=== PATIENT | female | born 1965 | race Caucasian/White ===

== ENCOUNTER 2021-09-10 00:20 | Inpatient (IN) ==
[2021-09-10] MEDS ORDERED: SODIUM BICARB 8.4% INJ 50 MEQ/50 ML SYR IV ONE (00:45)
[2021-09-10 00:49] LABS: Hematocrit (blood only) 47.9 % (37-47); Mean Corpuscular Hgb Conc 33.4 g/dL (32-36); Mean Corpuscular Volume 95.8 fL (80-100); Mean Platelet Volume 11.5 fL (7.4-10.4); Nucleated RBC # (auto) 0.03 K/uL (0-0); Nucleated RBC % (auto) 0.2 %; Platelet Count 201 K/uL (130-400); RDW Coefficient of Variation 12.5 % (11.5-14.5); RDW Standard Deviation 44.1 fL (36.4-46.3); White Blood Count 13.11 K/uL (4.8-10.8)
[2021-09-10 01:01] LABS: INR 1.1 (0.9-1.1); Partial Thromboplastin Ratio 1.2; Partial Thromboplastin Time 30.9 Seconds (21.0-31.0); Prothrombin Time 10.8 Seconds (9.0-12.0)
[2021-09-10] MEDS ORDERED: STAT IV Infusion **Titration per Protocol STA (01:12)
[2021-09-10] MEDS ORDERED: AMIODARONE 150MG / 100ML D5W IV ONE (01:12)
[2021-09-10] MEDS ORDERED: AMIODARONE / D5W 150 MG/100 ML BAG IV STA (01:12)
[2021-09-10] MEDS ORDERED: 0.2 MICRON FILTER SET 1 EA IV ONE (01:12)
[2021-09-10] MEDS ORDERED: AMIODARONE IV BOLUS & DRIP IV STA (01:12)
[2021-09-10 01:16] LABS: Albumin Globulin Ratio 0.9 (0.9-2); Albumin Level 3.4 gm/dl (3.4-5.0); Bilirubin,Total 0.3 mg/dl (0.2-1); Calcium 7.9 mg/dl (8.5-10.1); Est GFR (Non-African American) 52.6 ml/min; Globulin 3.9 gm/dl (2.5-4.0); Total Protein 7.3 gm/dl (6.4-8.2); Troponin I 0.679 ng/ml (0-0.045)
[2021-09-10 01:18] LABS: Appearance Urine Cloudy (Clear); Bacteria Urine Automated 3+ (Negative); Bilirubin Urine Negative (Negative); Blood Urine 2+ (Negative); Color Urine Yellow; Epithelial Cell Urine Auto >30 /lpf (0-5); Glucose Urine UA 2+ (Negative); Ketones Urine Negative (Negative); Leukocyte Esterase Urine Negative (Negative); Nitrite Urine Positive (Negative); Protein Urine 3+ (Negative); Specific Gravity Urine 1.011 (1.000-1.030); Urobilinogen Urine Negative (Negative); WBC Urine Automated >30 /hpf (0-5); pH Urine 6.5 (4.5-7.5)
[2021-09-10] MEDS ORDERED: AMIODARONE / D5W 360 MG/200 ML BAG IV ONE (01:22)
[2021-09-10 01:39] LABS: Amphetamines+Metham, Urine Neg (Neg); Barbiturates, Urine Neg (Neg); Benzodiazepine, Urine Neg (Neg); Cocaine, Urine Neg (Neg); MDMA (Ecstacy), Urine Neg (Neg); Methadone, Urine Neg (Neg); Opiate, Urine Neg (Neg); Phencyclidine, Urine Neg (Neg)
--- NOTE | 2021-09-10 02:08 | Emergency Department Note ---
Impression & Plan Cardiac arrest Admit to the ICU ED Provider Note NAME: ZACH CASTAÑEDA AGE: 56 SEX: F ARRIVES VIA: Ambulance INFORMANT: EMS; family ED PROVIDER(S): Kandice Swan DO CHIEF COMPLAINT: Cardiac arrest PLAN: Disposition: Admit to the ICU Condition: Critical MEDICAL DECISION MAKING: This is a 56-year-old female patient who suffered a cardiac arrest at home that was witnessed by her significant other. CPR was started immediately. BLS arrived on scene and an AED was applied. 2 shocks were administered. ALS arrived on scene and traffic monitor specialist was placed and the patient was in vent ricular fibrillation. 2 additional shocks were given and the patient was given epinephrine. She was intubated. She had return of spontaneous circulation after approximately 40-minute downtime. The patient had no meaningful purposeful movement upon return of pulses but she did seem to be overbreathing the ventilator. Patient has CT scan of the brain which was unremarkable. Tube placement was confirmed by chest x-ray. ABG confirmed significant metabolic acidosis. I discussed the case at length with the staff from the ICU as well as the [facility] hospitalist. I also had multiple conversations with the patient's family. Triage Nursing notes reviewed and agree with them. Additional history obtained from EMS and the patient's significant other. Differential diagnosis: Cardiac dysrhythmia, STEMI, electrolyte abnormality ER treatment provided: 2 Amps sodium bicarbonate IV IV amiodarone-150 mg IV Ativan-2 mg IV Keppra load-1000 mg Diagnostics interpreted by me: ECG: Normal sinus rhythm at a rate of 89 with frequent PVCs and a bigeminy pattern. There is a prolonged QT with a QTC of 528 ms. There is no [address] segment elevation or signs of specific ischemia Cardiac Monitoring: Normal sinus rhythm at a rate of 86 Laboratory studies: See below Imaging studies:as per stat rad CT Head: Images are degraded by significant motion artifact. No grossly evident acute abnormality Consultants: Interventional cardiology-Dr. Galindo HPI: 56/F arrives for evaluation of ROSC status post cardiac arrest. According to the patient's significant other, she had been eating applesauce and collapsed onto the floor afterwards and appeared to be having a seizure but then was noted to be pulseless and not breathing. 911 was called and the significant other started CPR immediately. ROS: I cannot complete a review of systems with the patient and she remained unresponsive. PAST MEDICAL HISTORY:Family states that the patient is diabetic and does smoke cigarettes. PAST SURGICAL HISTORY:See Below FAMILY HISTORY:See Below SOCIAL HISTORY:See Below HOME MEDICATIONS:See list ALLERGIES:None VITALS:See Below PHYSICAL EXAMINATION: HEENT: Head - normocephalic and atraumatic. Pupils are 3 mm and nonreactive. Nose -dry nasal mucosa without discharge. Mouth -endotracheal tube in place Neck: No nuchal rigidity; no cervical lymphadenopathy Heart: Regular rate and rhythm. There is a normal S1 and S2 with no murmurs, clicks, or gallops appreciated. Lungs: Clear to auscultation bilaterally with no wheezes, rales, or rhonchi. Abdomen: Soft, completely nontender, nondistended, with good bowel sounds. There are no palpable pulsatile masses or hepatosplenomegaly. There is no guarding, rigidity, or rebound noted. Extremities: No evidence of cyanosis, clubbing, or edema. There are easily palpable peripheral pulses. Skin: warm and dry with good turgor and no rashes. ED COURSE: Prior to the patient's arrival, I spoke with EMS providers on the phone to provide medical command. They were able to obtain return of spontaneous circulation on this patient. The patient was evaluated emergently in room B1. Report was taken from EMS at the bedside. Upon arrival to the emergency department, a complete physical exam was performed. An order was placed for continuous cardiac monitoring. The patient was in a normal sinus rhythm at a rate of 89. A twelve-lead EKG was obtained. Laboratory studies were drawn as above. Chest x-ray was performed and tube placement was confirmed. An ABG was obtained and the patient was found to be significantly acidotic. The patient was given 2 A of IV sodium bicarbonate. Patient's family arrived and I reviewed the patient's wishes for CODE STATUS. They felt she would want everything done. I discussed the case with staff from the ICU. We discussed the possibility of cooling this patient I then discussed the case with Dr. Galindo from interventional cardiology. The patient began to have some multifocal PVCs and actually went into bigeminy. At that point she was bolused with IV amiodarone. Patient was also noted to have some seizure activity and was given 2 mg of IV Ativan and loaded with IV Keppra. I have personally spent greater than 70 minutes of critical care time in the direct management of this patient. This includes bedside care, interpretation of diagnostic studies, and testing, discussion with consultants, patient, and family members, and other required patient management activities. This 70 minutes is in excess of all separately billable procedures. Kandice Swan DO Past Med/Surg History Social History Smoking Status: Unknown if ever smoked Preferred Language: Divehi Communication Ability: Impaired Air Quality Instrument Specialist Required: No Beliefs That Will Affect Care: None marital status: Life Partner Current Living Situation: Spouse Assistive Devices: None Allergies Allergies Allergy/AdvReac Type Severity Reaction Status Date / Time No Known Allergies Allergy Unverified 09/10/21 01:20 Home Meds Home Medications Medication Instructions Recorded Confirmed famotidine 20 mg tablet 20 mg PO DAILY 09/10/21 09/10/21 losartan 25 mg tablet 25 mg PO DAILY 09/10/21 09/10/21 metformin 500 mg tablet,extended 500 mg PO BIDM 09/10/21 09/10/21 release 24 hr nicotine 21 mg/24 hr daily 1 patch TRANSDERMAL DAILY 09/10/21 09/10/21 transdermal patch venlafaxine 150 mg tablet,extended 150 mg PO DAILY 09/10/21 09/10/21 release 24 hr Results & Data (ED) Vital Signs Vital Signs - 24 hr 09/10/21 00:43 09/10/21 01:05 09/10/21 01:20 Temperature 33.5 C L 33.3 C L 33.2 C L Temperature Source Villa Cath ( Temp Sensing) Villa Cath ( Temp Sensing) Villa Cath ( Temp Sensing) Pulse Rate 96 H Pulse Rate [Right] 90 82 Pulse Rhythm [Right] Regular Pulse Strength [Right] Normal Respiratory Rate 16 16 24 Respiratory Effort / Characteristics Mechanically Ventilated Mechanically Ventilated Mechanically Ventilated Blood Pressure 149/94 H Blood Pressure [Right Arm] 160/91 H 162/89 H Blood Pressure Mean 112 Blood Pressure Mean [Right Arm] 114 113 Blood Pressure Position Lying Blood Pressure Position [Right Arm] Lying Lying Pulse Oximetry 98 98 97 Oxygen Delivery Method Mechanical Vent Mechanical Vent Mechanical Vent Sepsis Recent Fever Within 48 Hours No Sepsis New/Unexplained Change in Mental Status N/A Sepsis Action Taken by Nursing No Action Required 09/10/21 01:35 09/10/21 01:58 Temperature 33.1 C L Temperature Source Temporal Artery Scan Pulse Rate Pulse Rate [Right] 74 68 Pulse Rhythm [Right] Pulse Strength [Right] Respiratory Rate 24 24 Respiratory Effort / Characteristics Mechanically Ventilated Mechanically Ventilated Blood Pressure Blood Pressure [Right Arm] 155/88 H 160/86 H Blood Pressure Mean Blood Pressure Mean [Right Arm] 110 110 Blood Pressure Position Blood Pressure Position [Right Arm] Lying Lying Pulse Oximetry 95 96 Oxygen Delivery Method Mechanical Vent Mechanical Vent Sepsis Recent Fever Within 48 Hours Sepsis New/Unexplained Change in Mental Status Sepsis Action Taken by Nursing Laboratory Data Result diagrams: 09/11/21 05:21 09/10/21 05:15 Lab Results 09/10/21 09/10/21 09/10/21 Range/Units 00:39 00:39 00:39 WBC 13.11 H (4.8-10.8) K/uL RBC 5.00 (4.2-5.4) M/uL Hgb 16.0 (12.0-16.0) g/dL Hct 47.9 H (37-47) % MCV 95.8 (80-100) fL MCH 32.0 (25-34) pg MCHC 33.4 (32-36) g/dL RDW Std Deviation 44.1 (36.4-46.3) fL RDW Coeff of Filipe 12.5 (11.5-14.5) % Plt Count 201 (130-400) K/uL MPV 11.5 H (7.4-10.4) fL Immature Gran % (Auto) 4.6 % Neut % (Auto) 50.1 % Lymph % (Auto) 39.0 % Dane % (Auto) 5.1 % Eos % (Auto) 1.0 % Baso % (Auto) 0.2 % Neut # (Auto) 6.57 H (1.4-6.5) K/uL Lymph # (Auto) 5.11 H (1.2-3.4) K/uL Dane # (Auto) 0.67 H (0.11-0.59) K/uL Eos # (Auto) 0.13 (0-0.5) K/uL Baso # (Auto) 0.03 (0-0.2) K/uL Immature Gran # (Auto) 0.60 H (0.00-0.02) K/uL Absolute Nucleated RBC 0.03 H (0-0) K/uL Nucleated RBC % (auto) 0.2 % PT 10.8 (9.0-12.0) Seconds INR 1.1 (0.9-1.1) APTT 30.9 (21.0-31.0) Seconds PTT Ratio 1.2 Sodium 137 (136-145) mmol/L Potassium 4.0 (3.5-5.1) mmol/L Chloride 106 (98-107) mmol/L Carbon Dioxide 15 L (21-32) mmol/L Anion Gap 16.0 H (3-11) BUN 13 (7-18) mg/dl Creatinine 1.16 (0.6-1.2) mg/dl Est Cr Clr Drug Dosing 59.0 ml/min Est GFR ( Amer) 61.0 ml/min Est GFR (Non-Af Amer) 52.6 ml/min BUN/Creatinine Ratio 11.0 (10-20) Glucose 291 H (70-99) mg/dl Lactate (0.4-2.0) mmol/L Calcium 7.9 L (8.5-10.1) mg/dl Total Bilirubin 0.3 (0.2-1) mg/dl AST 133 H (15-37) U/L ALT 132 H (12-78) Alkaline Phosphatase 96 (45-117) U/L Troponin I 0.679 H* (0-0.045) ng/ml Total Protein 7.3 (6.4-8.2) gm/dl Albumin 3.4 (3.4-5.0) gm/dl Globulin 3.9 (2.5-4.0) gm/dl Albumin/Globulin Ratio 0.9 (0.9-2) Lipase 398 H (73-393) U/L Specimen Hemolysis Urine Color Urine Appearance (Clear) Urine pH (4.5-7.5) Ur Specific [place] (1.000-1.030) Urine Protein (Negative) Urine Glucose (UA) (Negative) Urine Ketones (Negative) Urine Blood (Negative) Urine Nitrite (Negative) Urine Bilirubin (Negative) Urine Urobilinogen (Negative) Ur Leukocyte Esterase (Negative) Urine WBC (Auto) (0-5) /hpf Urine RBC (Auto) (0-4) /hpf U Hyaline Cast (Auto) (0-5) /lpf U Epithel Cells (Auto) (0-5) /lpf Urine Bacteria (Auto) (Negative) Urine Opiates Screen (Neg) Ur Methadone, Qual (Neg) Urine Barbiturates (Neg) Ur Phencyclidine (PCP) (Neg) U Amphetamin/Meth Scrn (Neg) MDMA (Ecstasy) Screen (Neg) U Benzodiazepines Scrn (Neg) Ur Cocaine Metabolite (Neg) U Marijuana (THC) Screen (Neg) SARS-CoV-2, RNA, NAAT (NEGATIVE) 09/10/21 09/10/21 09/10/21 Range/Units 00:39 00:39 00:40 WBC (4.8-10.8) K/uL RBC (4.2-5.4) M/uL Hgb (12.0-16.0) g/dL Hct (37-47) % MCV (80-100) fL MCH (25-34) pg MCHC (32-36) g/dL RDW Std Deviation (36.4-46.3) fL RDW Coeff of Filipe (11.5-14.5) % Plt Count (130-400) K/uL MPV (7.4-10.4) fL Immature Gran % (Auto) % Neut % (Auto) % Lymph % (Auto) % Dane % (Auto) % Eos % (Auto) % Baso % (Auto) % Neut # (Auto) (1.4-6.5) K/uL Lymph # (Auto) (1.2-3.4) K/uL Dane # (Auto) (0.11-0.59) K/uL Eos # (Auto) (0-0.5) K/uL Baso # (Auto) (0-0.2) K/uL Immature Gran # (Auto) (0.00-0.02) K/uL Absolute Nucleated RBC (0-0) K/uL Nucleated RBC % (auto) % PT (9.0-12.0) Seconds INR (0.9-1.1) APTT (21.0-31.0) Seconds PTT Ratio Sodium (136-145) mmol/L Potassium (3.5-5.1) mmol/L Chloride (98-107) mmol/L Carbon Dioxide (21-32) mmol/L Anion Gap (3-11) BUN (7-18) mg/dl Creatinine (0.6-1.2) mg/dl Est Cr Clr Drug Dosing ml/min Est GFR ( Amer) ml/min Est GFR (Non-Af Amer) ml/min BUN/Creatinine Ratio (10-20) Glucose (70-99) mg/dl Lactate (0.4-2.0) mmol/L Calcium (8.5-10.1) mg/dl Total Bilirubin (0.2-1) mg/dl AST (15-37) U/L ALT (12-78) Alkaline Phosphatase (45-117) U/L Troponin I (0-0.045) ng/ml Total Protein (6.4-8.2) gm/dl Albumin (3.4-5.0) gm/dl Globulin (2.5-4.0) gm/dl Albumin/Globulin Ratio (0.9-2) Lipase (73-393) U/L Specimen Hemolysis Urine Color Yellow Urine Appearance Cloudy A (Clear) Urine pH 6.5 (4.5-7.5) Ur Specific [place] 1.011 (1.000-1.030) Urine Protein 3+ H (Negative) Urine Glucose (UA) 2+ H (Negative) Urine Ketones Negative (Negative) Urine Blood 2+ H (Negative) Urine Nitrite Positive A (Negative) Urine Bilirubin Negative (Negative) Urine Urobilinogen Negative (Negative) Ur Leukocyte Esterase Negative (Negative) Urine WBC (Auto) >30 H (0-5) /hpf Urine RBC (Auto) 5-10 H (0-4) /hpf U Hyaline Cast (Auto) 10-30 H (0-5) /lpf U Epithel Cells (Auto) >30 H (0-5) /lpf Urine Bacteria (Auto) 3+ H (Negative) Urine Opiates Screen Neg (Neg) Ur Methadone, Qual Neg (Neg) Urine Barbiturates Neg (Neg) Ur Phencyclidine (PCP) Neg (Neg) U Amphetamin/Meth Scrn Neg (Neg) MDMA (Ecstasy) Screen Neg (Neg) U Benzodiazepines Scrn Neg (Neg) Ur Cocaine Metabolite Neg (Neg) U Marijuana (THC) Screen Neg (Neg) SARS-CoV-2, RNA, NAAT NEGATIVE (NEGATIVE) 09/10/21 Range/Units 01:37 WBC (4.8-10.8) K/uL RBC (4.2-5.4) M/uL Hgb (12.0-16.0) g/dL Hct (37-47) % MCV (80-100) fL MCH (25-34) pg MCHC (32-36) g/dL RDW Std Deviation (36.4-46.3) fL RDW Coeff of Filipe (11.5-14.5) % Plt Count (130-400) K/uL MPV (7.4-10.4) fL Immature Gran % (Auto) % Neut % (Auto) % Lymph % (Auto) % Dane % (Auto) % Eos % (Auto) % Baso % (Auto) % Neut # (Auto) (1.4-6.5) K/uL Lymph # (Auto) (1.2-3.4) K/uL Dane # (Auto) (0.11-0.59) K/uL Eos # (Auto) (0-0.5) K/uL Baso # (Auto) (0-0.2) K/uL Immature Gran # (Auto) (0.00-0.02) K/uL Absolute Nucleated RBC (0-0) K/uL Nucleated RBC % (auto) % PT (9.0-12.0) Seconds INR (0.9-1.1) APTT (21.0-31.0) Seconds PTT Ratio Sodium (136-145) mmol/L Potassium (3.5-5.1) mmol/L Chloride (98-107) mmol/L Carbon Dioxide (21-32) mmol/L Anion Gap (3-11) BUN (7-18) mg/dl Creatinine (0.6-1.2) mg/dl Est Cr Clr Drug Dosing ml/min Est GFR ( Amer) ml/min Est GFR (Non-Af Amer) ml/min BUN/Creatinine Ratio (10-20) Glucose (70-99) mg/dl Lactate 5.7 H* (0.4-2.0) mmol/L Calcium (8.5-10.1) mg/dl Total Bilirubin (0.2-1) mg/dl AST (15-37) U/L ALT (12-78) Alkaline Phosphatase (45-117) U/L Troponin I (0-0.045) ng/ml Total Protein (6.4-8.2) gm/dl Albumin (3.4-5.0) gm/dl Globulin (2.5-4.0) gm/dl Albumin/Globulin Ratio (0.9-2) Lipase (73-393) U/L Specimen Hemolysis Urine Color Urine Appearance (Clear) Urine pH (4.5-7.5) Ur Specific [place] (1.000-1.030) Urine Protein (Negative) Urine Glucose (UA) (Negative) Urine Ketones (Negative) Urine Blood (Negative) Urine Nitrite (Negative) Urine Bilirubin (Negative) Urine Urobilinogen (Negative) Ur Leukocyte Esterase (Negative) Urine WBC (Auto) (0-5) /hpf Urine RBC (Auto) (0-4) /hpf U Hyaline Cast (Auto) (0-5) /lpf U Epithel Cells (Auto) (0-5) /lpf Urine Bacteria (Auto) (Negative) Urine Opiates Screen (Neg) Ur Methadone, Qual (Neg) Urine Barbiturates (Neg) Ur Phencyclidine (PCP) (Neg) U Amphetamin/Meth Scrn (Neg) MDMA (Ecstasy) Screen (Neg) U Benzodiazepines Scrn (Neg) Ur Cocaine Metabolite (Neg) U Marijuana (THC) Screen (Neg) SARS-CoV-2, RNA, NAAT (NEGATIVE) Administered Medications Amiodarone HCl/Dextrose (Nexterone / D5w) 360 mg in 200 mls @ 16.667 mls/hr IV .Q12H LUCY Stop: 10/10/21 07:14 Last Admin: 09/11/21 06:20 Dose: 0.5 mg/min, 16.7 mls/hr Documented by: [id number] Cosigned by: [id number] Infusion: 09/11/21 06:20 Dose: 0.5 mg/min, 16.7 mls/hr Documented by: [id number] Cosigned by: [id number] Admin: 09/10/21 19:12 Dose: 0.5 mg/min, 16.7 mls/hr Documented by: [id number] Cosigned by: [id number] Infusion: 09/10/21 18:52 Dose: 0.5 mg/min, 16.7 mls/hr Documented by: [id number] Cosigned by: [id number] Admin: 09/10/21 06:53 Dose: 0.5 mg/min, 16.7 mls/hr Documented by: [id number] Cosigned by: [id number] Acetaminophen (Ofirmev) 1,000 mg in 100 mls @ 400 mls/hr IV Q8H PRN PRN Reason: Fever Stop: 09/13/21 03:33 Last Infusion: 09/11/21 02:55 Dose: 0 mls/hr Documented by: [id number] Admin: 09/11/21 02:01 Dose: 400 mls/hr Documented by: [id number] Infusion: 09/10/21 12:16 Dose: 0 mls/hr Documented by: [id number] Admin: 09/10/21 12:01 Dose: 400 mls/hr Documented by: [id number] Ceftriaxone Sodium 2,000 mg/ (Dextrose) 70 mls @ 140 mls/hr IV Q24H [facility] Stop: 09/20/21 03:59 Last Infusion: 09/11/21 05:35 Dose: 0 mls/hr Documented by: [id number] Admin: 09/11/21 04:36 Dose: 140 mls/hr Documented by: [id number] Infusion: 09/10/21 06:17 Dose: 0 mls/hr Documented by: [id number] Admin: 09/10/21 05:08 Dose: 140 mls/hr Documented by: [id number] Propofol (Diprivan) 1,000 mg in 100 mls @ 24.06 mls/hr IV .Q4H10M [facility]; Protocol Stop: 09/13/21 12:01 Last Admin: 09/11/21 06:20 Dose: 50 mcg/kg/min, 24.1 mls/hr Documented by: [id number] Cosigned by: [id number] Titration: 09/11/21 06:10 Dose: 50 mcg/kg/min, 24.1 mls/hr Documented by: [id number] Cosigned by: [id number] Admin: 09/11/21 02:01 Dose: 50 mcg/kg/min, 24.1 mls/hr Documented by: [id number] Cosigned by: [id number] Titration: 09/11/21 02:01 Dose: 50 mcg/kg/min, 24.1 mls/hr Documented by: [id number] Cosigned by: [id number] Admin: 09/11/21 00:12 Dose: 50 mcg/kg/min, 24.1 mls/hr Documented by: [id number] Cosigned by: [id number] Titration: 09/10/21 22:59 Dose: 50 mcg/kg/min, 24.1 mls/hr Documented by: [id number] Cosigned by: [id number] Admin: 09/10/21 18:50 Dose: 50 mcg/kg/min, 24.1 mls/hr Documented by: [id number] Cosigned by: [id number] Titration: 09/10/21 18:48 Dose: 50 mcg/kg/min, 24.1 mls/hr Documented by: [id number] Titration: 09/10/21 16:45 Dose: 50 mcg/kg/min, 24.1 mls/hr Documented by: [id number] Titration: 09/10/21 16:00 Dose: 45 mcg/kg/min, 21.7 mls/hr Documented by: [id number] Titration: 09/10/21 15:30 Dose: 40 mcg/kg/min, 19.2 mls/hr Documented by: [id number] Titration: 09/10/21 15:00 Dose: 35 mcg/kg/min, 16.8 mls/hr Documented by: [id number] Titration: 09/10/21 14:15 Dose: 30 mcg/kg/min, 14.4 mls/hr Documented by: [id number] Titration: 09/10/21 14:00 Dose: 25 mcg/kg/min, 12 mls/hr Documented by: [id number] Admin: 09/10/21 13:14 Dose: 20 mcg/kg/min, 9.6 mls/hr Documented by: [id number] Cosigned by: [id number] Levetiracetam 1,000 mg/ Sodium (Chloride) 110 mls @ 420 mls/hr IV Q12H LUCY Stop: 10/10/21 13:59 Last Infusion: 09/11/21 02:55 Dose: 0 mls/hr Documented by: [id number] Admin: 09/11/21 02:00 Dose: 420 mls/hr Documented by: [id number] Infusion: 09/10/21 13:39 Dose: 0 mls/hr Documented by: [id number] Admin: 09/10/21 13:23 Dose: 420 mls/hr Documented by: [id number] Midazolam HCl (Midazolam Hcl 1 Mg/Ml 2ml Vial) 2 mg IV Q2H PRN PRN Reason: RASS goal -1 Stop: 10/10/21 03:33 Last Admin: 09/10/21 11:21 Dose: 2 mg Documented by: [id number] Admin: 09/10/21 09:32 Dose: 2 mg Documented by: [id number] Admin: 09/10/21 05:08 Dose: 2 mg Documented by: [id number] Discontinued Medications Amiodarone HCl/Dextrose (Amiodarone 150mg / 100ml D5w) Confirm Administered Dose 150 mg IV .STK-MED ONE Stop: 09/10/21 01:13 Last Admin: 09/10/21 01:18 Dose: 150 mg Documented by: [id number] Cosigned by: [id number] Amiodarone HCl/Dextrose (Nexterone / D5w) 150 mg in 100 mls @ 600 mls/hr IV NOW STA Stop: 09/10/21 01:21 Last Admin: 09/10/21 01:18 Dose: Not Given Documented by: [id number] Amiodarone HCl/Dextrose (Nexterone / D5w) 360 mg in 200 mls @ 33.333 mls/hr IV ONE ONE Stop: 09/10/21 07:21 Last Infusion: 09/10/21 06:53 Dose: 0 mls/hr Documented by: [id number] Cosigned by: [id number] Admin: 09/10/21 01:40 Dose: 33.3 mls/hr Documented by: [id number] Cosigned by: [id number] Levetiracetam 1,000 mg/ Sodium (Chloride) 110 mls @ 440 mls/hr IV NOW STA Stop: 09/10/21 02:47 Last Infusion: 09/10/21 04:11 Dose: 0 mls/hr Documented by: [id number] Admin: 09/10/21 02:46 Dose: 440 mls/hr Documented by: [id number] Lorazepam (Ativan) 2 mg in 4 mls @ 4 mls/min IV NOW STA Stop: 09/10/21 02:35 Last Admin: 09/10/21 02:36 Dose: 4 mls/min Documented by: [id number] Magnesium Sulfate/Dextrose (Magnesium Sulfate / D5w) 1 gm in 100 mls @ 50 mls/hr IV ONE ONE Stop: 09/10/21 11:14 Last Infusion: 09/10/21 11:37 Dose: 0 mls/hr Documented by: [id number] Admin: 09/10/21 09:37 Dose: 50 mls/hr Documented by: [id number] Sodium Chloride (Nss 1000ml) 1,000 mls @ 125 mls/hr IV .Q8H LUCY Stop: 09/10/21 16:59 Last Infusion: 09/10/21 19:00 Dose: 0 mls/hr Documented by: [id number] Admin: 09/10/21 09:34 Dose: 125 mls/hr Documented by: [id number] Lorazepam (Lorazepam 2 Mg/4 Ml Vial) Confirm Administered Dose 2 mg .ROUTE .STK- MED ONE Stop: 09/10/21 02:34 Last Admin: 09/10/21 02:36 Dose: Not Given Documented by: [id number] Propofol (Propofol Iv Emulsion 10 Mg/Ml 100 Ml Vial) Confirm Administered Dose 1,000 mg IV .STK-MED ONE Stop: 09/10/21 11:48 Last Admin: 09/10/21 12:54 Dose: Not Given Documented by: [id number] Sodium Bicarbonate (Sodium Bicarb 8.4% Inj 50 Meq/50 Ml Syr) Confirm Administered Dose 100 meq IV .STK-MED ONE Stop: 09/10/21 00:46 Last Admin: 09/10/21 00:45 Dose: 100 meq Documented by: [id number] Discharge Plan Visit Data Chief Complaint: Cardiac Arrest/CPR Stated Complaint: POST CARDIAC ARREST Discharge Problem: Cardiac arrest Patient Disposition: Admitted As Inpatient Discharge Instructions Interventions: ED Discharge Assessment Last Done: 09/10/21 02:41
[2021-09-10 02:14] LABS: Basophils # (auto) 0.03 K/uL (0-0.2); Basophils % (auto) 0.2 %; Eosinophils # (auto) 0.13 K/uL (0-0.5); Immature Granulocytes % (auto) 4.6 %; Lymphocytes # (auto) 5.11 K/uL (1.2-3.4); Monocytes # (auto) 0.67 K/uL (0.11-0.59); Monocytes % (auto) 5.1 %; Neutrophils # (auto) 6.57 K/uL (1.4-6.5); Neutrophils % (auto) 50.1 %
[2021-09-10] MEDS ORDERED: levETIRAcetam 1,000 MG in 0.9 % SODIUM CHLORIDE 100 ML IV STA (02:33)
[2021-09-10] MEDS ORDERED: LORazepam 2 MG/4 ML VIAL ONE (02:33)
[2021-09-10] MEDS ORDERED: LORazepam 2 MG/4 ML VIAL IV STA (02:34)
[2021-09-10] MEDS ORDERED: ICU PROTOCOL FOR HYPERGLYCEMIA PRN (03:22)
--- NOTE | 2021-09-10 03:40 | Critical Care Consultation ---
Date of Consultation September 10, 2021 Assessment & Plan (1) Admitted to intensive care unit: Reason Critically Ill: 56-year-old female status post ventricular fibrillation cardiac arrest with ROSC requiring ongoing management evaluation. NEURO - * Encephalopathy: * Likely secondary to anoxic brain injury in the setting of prolonged resuscitation time of greater than 40 minutes. * Patient without purposeful movements. Pupils fixed and equal bilaterally. No response to pain. Minimal gag reflex. * CT head without acute findings at this time. * Patient not requiring sedation to this point. * There was question of seizure-like activity lasting less than a minute prior to cardiac arrest. * EEG in AM. * Given extensive downtime, minimal responsiveness at this point, not requiring sedation, etc., the patient has likely experienced a catastrophic neurologic injury secondary to anoxia and I question potential for any neurologic recovery at this time. Did have extensive conversation with the patient bedside and discussed this directly. I will continue to proceed with EEG and ongoing neurological assessment. Consider addition of MRI to assess extent of anoxia. Maintain euthermia. * Seizure-like activity: * After I had evaluated the patient in the emergency department, she had wit nessed seizure-like activity by nursing staff which included eye-opening with associated brief episodes of diffuse muscle jerks. Fasciculations noted to the jaw on occasion. * Received 2 mg IV Ativan and loading dose of Keppra in the emergency department. * Patient with sporadic and intermittent episodes of eye-opening with associated myoclonic jerks. These do not appear to be consistent or rhyt hmic. * Likely represent seizure-like activity in the patient who has sustained significant anoxic brain injury. * Will add Versed as needed pushes for any increase seizure activity. * Can start Versed drip if necessary. * A.m. EEG ordered. CARDIAC/VASCULAR - * V. fib cardiac arrest status post ROSC: * Patient received chest compressions initially by significant other followed by EMS and subsequently Brayden machine for approximately 40 total minutes. She received 2 rounds of epinephrine and defibrillation x4. * Initial EKG demonstrated A. fib-like rhythm, however the patient now appears to be in a sinus rhythm with occasional ectopic beats. * Agree with institution of amiodarone in the status post V. fib arrest patient with ongoing ectopy. * Trend troponins. * Serial EKGs * TTM to include maintaining euthermia. Will not call patient as ongoing studies demonstrate no improved neurological outcome despite aggressive cooling measures. Additionally, the patient with downtime in excess of 40 minutes with likely catastrophic underlying neurological injury with minimal likelihood of significant recovery. * Appreciate cardiology consultation. * Monitor on telemetry. RESPIRATORY - * Respiratory failure in the setting of cardiac growth: * Intubated in the field. * Able to titrate down FiO2 to 30% quickly. * Trend ABGs to aid in adjustment of ventilator settings. GI/NUTRITION - * OGT in place. RENAL/LYTES - * Initially with profound acidemia: * Received 2 A of sodium bicarb in the emergency department. * Ventilator adjusted appropriately. * Trend ABGs. * Consider bicarb drip if necessary. - * Villa in place - Strict I&Os. ENDO - * DMII * BSGs per unit protocol. ISS --> gtt per unit policy. HEME - * Stable H&H ID - * UTI: * Rocephin added pending urine cultures. LINES/IV ACCESS - * PIVs x2 * ET Tube * OGT * Villa * LEFT Radial Arterial Line DVT PROPHYLAXIS - * Heparin * SCDs CODE STATUS - * I did have extensive conversation with multiple family members present at bedside. At this point, the patient did sustain significant downtime with total code time of approximately 40 minutes. This likely represents significant neurological insult with likely irreversible damage. We did discuss ongoing CODE STATUS and they wish to speak as a family together prior to proceeding with further decision. They did request that the patient's 2 children who are traveling from out of state get a chance to see their mother prior to any further decisions are made at this point also. To this point, the patient's CODE STATUS will remain FULL CODE. I have personally spent 80 minutes of critical care time in the direct management of this patient. This is a life/limb threatening event. This includes time spent evaluating patient, direct bedside care, chart review, placing orders, interpretation of diagnostic studies, discussion with consultants, patient, and family members, as well as other required patient management activities. This time is exclusive of all separately billable procedures, and teaching time and separate from and in addition to any other critical care service time. Thank you for allowing us to participate in the care of this patient. Please refer to my attending physician's documentation for any further recommendations. (2) Cardiac arrest: (3) Cardiac arrest with ventricular fibrillation: (4) Diabetes: (5) Hypertension: (6) Emphysema lung: (7) Fatty liver: (8) Cigarette smoker: History of Present Illness Attending Physician: Jacy Casas DO History of Present Illness Patient is a 56-year-old female with a significant past medical history for type 2 diabetes, hypertension, fatty liver disease, and smoking history who presented to the emergency department postcardiac arrest. Per the patient's , she had been acting herself and with no complaints. He states that just before bed, while sitting, she had "seizure-like" activity lasting less than 1 minute where her body became rigid and he noticed frothing at her mouth. While he was contacted EMS, he notes that these events did stop and he checked for a pulse. When checking for pulse, he noticed that she was pulseless. He was coached on how to start CPR by the concrete pipe making machine operator. The patient began CPR until EMS arrived within approximately 10 minutes. EMS took over compressions. Patient received defibrillation x2 with AED. Upon command and control arrival, the patient received intraosseous access with doses of epinephrine x2 as well as defibrillation x2. Eventually, ROSC was achieved after total downtime of approximately 40 minutes. Patient initially appeared to be in an A. fib, but converted to sinus rhythm prior to arrival in the emergency department. Upon evaluation in the emergency department, the patient is intubated and not requiring sedation. The patient makes no purposeful movements. She has minimal responsiveness to painful gag reflex. Initially slightly breathing over the ventilator. Pupils minimally responsive but not dilated. Chest x-ray demonstrates appropriate positioning of ET tube. ABG shows significant acidosis . The patient received 2 A of bicarb with ongoing IV fluids. Interventional cardiology was contacted. No intervention at this time. Serial EKGs were recommended with contacting them for any changes. Case discussed with my attending. Patient will be admitted to the ICU for ongoing management and goals to keep patient normothermic. Allergies Allergy/AdvReac Type Severity Reaction Status Date / Time No Known Allergies Allergy Unverified 09/10/21 01:20 Home Medications Medication Instructions Recorded Confirmed Type famotidine 20 mg tablet 20 mg PO DAILY 09/10/21 09/10/21 History losartan 25 mg tablet 25 mg PO DAILY 09/10/21 09/10/21 History metformin 500 mg tablet,extended 500 mg PO BIDM 01/08/22 01/08/22 History release 24 hr nicotine 21 mg/24 hr daily 1 patch TRANSDERMAL DAILY 09/10/21 09/10/21 History transdermal patch venlafaxine 150 mg tablet,extended 150 mg PO DAILY 09/10/21 09/10/21 History release 24 hr Patient History Social History Smoking Status: Unknown if ever smoked Preferred Language: Vietnamese Communication Ability: Effective Dry Cans Operator Required: No Beliefs That Will Affect Care: None Current Living Situation: Spouse Assistive Devices: Oxygen - Continuous Review of Systems Review of Systems: Unobtainable due to cognitive status Physical Exam Physical Exam: VITAL SIGNS - Vital signs and nursing notes were reviewed. GENERAL - 56-year-old female appearing her stated age who is intubated and nonresponsive. HEAD - NC/AT. EYES - Pupils equal and minimally reactive to light bilaterally. Sclera anicteric. Palpebral conjunctiva pink and moist with no injection noted. EARS - No deformities of external structures noted on gross examination bilaterally. NOSE - Midline and without cyanosis. No epistaxis or purulent drainage noted. MOUTH/OROPHARYNX - ET Tube in place. Without perioral cyanosis. NECK - Neck with FROM. Supple to palpation. LUNGS - Chest wall symmetric without accessory muscle use, intercostals retractions, or central cyanosis. Normal vesicular breath sounds CTA B/L. No wheezes, rales, or rhonchi appreciated. CARDIAC - RRR with S1/S2. No murmur, rubs, or gallops appreciated. Skin abrasion on middle of chest at site of Brayden Machine. ABDOMEN - Abdominal contour obese without pulsations or visible masses. BS normoactive all four quadrants. No tenderness, palpable masses, hepatosplenomegaly, or ascites noted. EXTREMITIES - No clubbing or peripheral cyanosis. No pretibial edema present. +3/5 radial and dorsalis pedis pulses palpated throughout. NEUROLOGIC -no focal neurological deficits noted on exam. Pupils fixed and equal. No purposeful movement. No reaction to painful stimuli. Minimal gag reflex. Results & Data Results & Data ([facility]) Vital Signs (Past 12 Hours) Vital Signs Temp Pulse Pulse Resp BP BP Pulse Ox 09/10/21 02:22 71 24 154/75 H 97 09/10/21 01:58 68 24 160/86 H 96 09/10/21 01:35 33.1 C L 74 24 155/88 H 95 09/10/21 01:20 33.2 C L 82 24 162/89 H 97 09/10/21 01:05 33.3 C L 90 16 160/91 H 98 09/10/21 00:43 33.5 C L 96 H 16 149/94 H 98 Coding Level of Care Code Critical Care 1st 30-74 mins Diagnoses Admitted to intensive care unit Z78.9 Cardiac arrest I46.9 Cardiac arrest with ventricular fibrillation I46.9; I49.01 Diabetes E11.9 Hypertension I10 Emphysema lung J43.9 Fatty liver K76.0 Cigarette smoker F17.210 Time Spent (min) 80
--- NOTE | 2021-09-10 03:40 | Procedure Note ---
Procedure Note Date of Service September 10, 2021 Note Procedure: Arterial Line Placement Attending: Dr. Hodges APC: Munir Langley PA-C Indication: Hemodynamic monitoring Anesthesia: Lidocaine 1% Emergent Consent implied in the setting of clinical deterioration and need for close hemodynamic monitoring, ABG monitoring, frequent lab draws, etc. A time-out was completed verifying correct patient, procedure, site, positioning, and implant(s) or special equipment if applicable. Allens test was performed to ensure adequate perfusion. Patients LEFT wrist was prepped and draped in the usual sterile fashion. Ultrasound guidance was used to aid needle placement. A 20g Arrow arterial line was introduced into the LEFT Radial artery. Catheter was threaded, and the needle was removed with appropriate blood return. Good waveform was observed. The patient tolerated the procedure well. Confirm ation of placement with ultrasound. Blood Loss: Minimal Complications: None Procedural Ultrasound Guidance: Procedure Date: 09/10/2021 Indication: Hemodynamic Monitoring, Frequent ABGs/Lab draws. Attending: Dr. Hodges APC: Munir Langley PA-C Artery Identified: YES Line confirmed in Artery with ultrasound: YES Complications: NONE Patient tolerated procedure: WELL Coding CPT Codes Tubes, Drains, and Vasc Access - Tubes, Drains, and Vasc Access: [id number] Place Catheter In Artery ([id number]) [facility] Procedure Codes (Charges) Tubes, Drains, and Vasc Access Procedure 1: Tubes, Drains, and Vasc Access: [id number] Place Catheter In Artery
[2021-09-10] MEDS ORDERED: cefTRIAXone SODIUM 1,000 MG in DEXTROSE 5% 50 ML IV SCH (03:45)
[2021-09-10 04:59] LABS: iSTAT Arterial Blood Gas HCO3 23 meg/L (19-24); iSTAT Arterial Blood Gas pCO2 51 mmHg (35-46); iSTAT Arterial Blood Gas pH 7.26 (7.35-7.45); iSTAT Arterial Blood Gas pO2 105 mmHg (80-95); iSTAT Carbon Dioxide 24 mmol/L (24-31); iSTAT FiO2 30 %; iSTAT Site Art Line
[2021-09-10] MEDS: cefTRIAXone SODIUM 2,000 MG in DEXTROSE 5% 50 ML IV SCH (05:08)
[2021-09-10] MEDS: MIDAZOLAM HCL 1 MG/ML 2ML VIAL IV PRN ×3 (05:08→11:21)
[2021-09-10 05:45] LABS: BUN Creatinine Ratio 15.8 (10-20); Bilirubin Direct 0.1 mg/dl (0-0.2); Calcium 7.6 mg/dl (8.5-10.1); Creatinine Clr Calc Pharmacy 65.2 ml/min; Est GFR (African American) 68.8 ml/min; Est GFR (Non-African American) 59.3 ml/min; Magnesium 1.9 mg/dl (1.8-2.4); Potassium 3.7 mmol/L (3.5-5.1)
[2021-09-10 06:03] LABS: Bilirubin,Total 0.4 mg/dl (0.2-1); Phosphorus 3.4 mg/dl (2.5-4.9); Total Protein 7.2 gm/dl (6.4-8.2)
[2021-09-10 06:18] LABS: Albumin Level 3.4 gm/dl (3.4-5.0)
[2021-09-10 06:34] LABS: Hematocrit (blood only) 46.3 % (37-47); Hemoglobin 15.8 g/dL (12.0-16.0); Mean Corpuscular Hemoglobin 31.7 pg (25-34); Mean Corpuscular Hgb Conc 34.1 g/dL (32-36); Mean Corpuscular Volume 92.8 fL (80-100); Mean Platelet Volume 11.2 fL (7.4-10.4); Platelet Count 211 K/uL (130-400); RDW Coefficient of Variation 12.6 % (11.5-14.5); RDW Standard Deviation 42.5 fL (36.4-46.3); Red Blood Count 4.99 M/uL (4.2-5.4)
[2021-09-10 06:38] LABS: Basophils # (auto) 0.03 K/uL (0-0.2); Basophils % (auto) 0.1 %; Eosinophils # (auto) 0.01 K/uL (0-0.5); Immature Granulocytes % (auto) 0.4 %; Lymphocytes # (auto) 1.21 K/uL (1.2-3.4); Lymphocytes % (auto) 5.4 %; Monocytes # (auto) 2.09 K/uL (0.11-0.59); Monocytes % (auto) 9.3 %; Neutrophils # (auto) 19.06 K/uL (1.4-6.5); Neutrophils % (auto) 84.8 %
[2021-09-10] MEDS: AMIODARONE / D5W 360 MG/200 ML BAG IV SCH ×2 (06:53→19:12)
--- NOTE | 2021-09-10 07:20 | History and Physical Report ---
DATE OF ADMISSION: 09/10/2021. CHIEF COMPLAINT: Cardiac arrest. HISTORY OF PRESENT ILLNESS: A 56-year-old female with past medical history significant for diabetes, history of nonsustained ventricular tachycardia with frequent PVCs, hypertension, depression with anxiety, tobacco use disorder, generalized anxiety disorder, status post cardiac arrest. As per , the patient suddenly started seizing. He laid her down and she was unresponsive and he called 911 and CPR was initiated and by the time EMS arrived, it was around 15 minutes and as per the ER, she was found to be in V Fib and she was given 2 shocks, and also received epinephrine and ROSC was obtained and she was brought to the hospital. She is also status post intubation In the ER, she received Ativan, Keppra, 2 amps of sodium bicarbonate, and IV amiodarone. Critical care talked to the family at length explaining the guarded prognosis as the patient was down for 40 minutes before ROSC was obtained, and family seemed to understand and plan to continue current care until further determination. The patient had COVID last September 2020 and as per after that she was COVID vaccinated, also had booster. Currently, the patient is status post intubation. The patient is not requiring any sedation, but once in a while she twitches her body. ALLERGIES: No known drug allergies. PAST MEDICAL HISTORY: As mentioned above. PAST SURGICAL HISTORY: , colonoscopy, ligation of oviducts, removal of cervix cone during second , incisional hernia repair. MEDICATIONS: As per [facility], the patient is on metformin 500 mg p.o. b.i.d., nicotine patch 21 mg daily, Effexor ER 150 mg p.o. daily, famotidine 20 mg p.o. daily, losartan 25 mg p.o. daily. FAMILY HISTORY: Significant for maternal aunt has breast cancer; father has heart disorder. SOCIAL HISTORY: Smokes half pack a day for 35 years. Not drinking alcohol currently. No drug use. REVIEW OF SYSTEMS: Unobtainable. PHYSICAL EXAMINATION: GENERAL: The patient is unresponsive, status post intubation. VITAL SIGNS: Temperature 34.1, pulse 82, respiratory rate 30, blood pressure 125/79, oxygen 91% on mechanical vent. HEENT: Pupils are sluggish to react. NECK: No JVD. No neck masses seen. CARDIOVASCULAR: S1 and S2 heard. Regular rate and rhythm. No murmur, no gallop. RESPIRATORY SYSTEM: Normal AP diameter. No accessory muscle use. No wheezing, no crackles. ABDOMEN: Soft, bowel sounds present, no distention. CENTRAL NERVOUS SYSTEM: Unresponsive status post intubation. EXTREMITIES: No edema, no erythema seen. LABORATORY DATA: WBC 13.1, hemoglobin 16, hematocrit 47.9, platelets 201. PT 10.8, INR 1.1, APTT 30.9. Blood gases, pH of 7.26, pCO2 of 51, bicarbonate 23, oxygen 97% on ventilator. Sodium 138, potassium 3.7, chloride 107, bicarbonate 22, BUN 17, creatinine 1, serum glucose 276. Lactate 4.1, calcium 7.6, phosphorus 3.4, magnesium 1.9, total bilirubin 0.4, direct bilirubin 0.1, AST 161, ALT 151, alkaline phosphatase 67. Troponin I initially was 0.6, then trended up to 6. Urinalysis positive for nitrite. MRSA screen negative. Urine drug screen negative. SARS-CoV-2 negative. EKG: Sinus rhythm with PVCs in the pattern of bigeminy at a rate of 89, prolonged QTc at 528. ASSESSMENT AND PLAN: This is a 56-year-old female who presents status post cardiac arrest. 1. Status post cardiac arrest: Etiology unclear at this time, probably myocardial infarction because of elevated troponin. Currently, status post intubation, not requiring any sedation. She was down for 40 minutes. Currently on amiodarone drip and received ativan and Keppra. Closely monitor in the ICU. Vent management as per critical care.Appreciate Critical care help. 2. Possible myocardial infarction with trending of troponin: Follow the echocardiogram. Await cardiology input. 3. Urinary tract infection: On Rocephin. 4. Diabetes: Will follow the blood sugars may need insulin drip. 5. Depression: Will hold home medications for now. 6. Gastroesophageal reflux disease: On Pepcid. 7. Deep venous thrombosis prophylaxis: As per critical care. DISPOSITION: Closely monitor in the ICU. Level 1 full code. Family to decide on further code status. Guarded to poor prognosis. Job ID: [id number] [facility]
--- NOTE | 2021-09-10 08:36 | XRay Report ---
XR chest 1V portable CLINICAL HISTORY: Atypical chest pain TECHNIQUE: Single frontal radiograph of the chest was obtained. Comparison: None available at the time of this dictation. FINDINGS: Endotracheal tube terminates 45 mm and the wilmer. The cardiomediastinal silhouette is normal. Promin ence and cephalization of the vasculature is seen. No evidence of pleural effusion or pneumothorax. IMPRESSION: 1. Mild pulmonary edema. 2. Satisfactory position of endotracheal tube. ACT 112: Negative or not required by law. Electronically signed by: Inocencio Lemus M.D. 09/10/2021 8:35 AM
--- NOTE | 2021-09-10 08:53 | CT Scan Report ---
CT head/brain wo con CLINICAL HISTORY: post cardiac arrest Technique: Contiguous axial CT images of the head were acquired from the base of the skull to the landry ivan without intravenous contrast administration. Images were viewed in brain, subdural and bone [facility]. Automated dose lowering techniques and/or adjustment according to patient size were utilized for this exam. Comparison: None available at the time of this dictation. Findings: The ventricles, basal cisterns, and cerebral sulci are normal. There is no acute intracranial hemorrh age or evidence of acute territorial infarction. Neither mass effect, shift of the midline structures , nor abnormal extra-axial fluid collections are shown. Imaged portions of the paranasal sinuses and mastoid air cells are clear. The orbits appear normal. There are no acute fractures of the calvaria or scalp swelling. Impression: No acute intracranial hemorrhage, no evidence of acute territorial infarction or other acute intracra nial disease process. ACT 112: Negative or not required by law. Electronically signed by: Inocencio Lemus M.D. 09/10/2021 8:51 AM
[2021-09-10] MEDS ORDERED: SODIUM CHLORIDE 0.9% 1000ML 1,000 ML IV SCH (09:00)
[2021-09-10] MEDS ORDERED: MAGNESIUM SULFATE / D5W 1 GM/100 ML BAG IV ONE (09:15)
--- NOTE | 2021-09-10 10:22 | Cardiology Consultation ---
Date of Consultation September 10, 2021 Assessment & Plan (1) Cardiac arrest with ventricular fibrillation: (2) Frequent PVCs: (3) Cardiomyopathy: 56-year-old female with a history of frequent premature ventricular complexes presents with cardiac arrest with approximately 40 minutes downtime. Her echocardiogram reveals a cardiomyopathy which I suspect is nonischemic related to her frequent PVCs. Per echocardiogram in 2019 her ejection fraction was normal, however, now reduced to 30-35%. Continue amiodarone for suppression of ventricular dysrhythmias. Her neurologic status appears poor. She is unresponsive with upward gaze and intermittent tonic/clonic movements. Significant anoxic brain injury suspected. Await neurology evaluation and EEG. Further recommendations pending neurologic assessment and prognosis. History of Present Illness Reason for Consultation: Cardiac arrest Requesting Physician: Munir Langley PA-C Attending Physician: Xavier Padgett MD History of Present Illness 56-year-old female presented to the emergency department status post cardiac arrest. Currently unresponsive on ventilator. History gleaned from medical records and discussion with supervisor inspection room. Per review of records, she was in her usual state of health prior to last evening. Intraosseous access was obtained and she received doses of epinephrine x2. External defibrillation performed x2. EMS reports an initial rhythm of atrial fibrillation, however, sinus rhythm noted on ECG since admission. Telemetry reveals sinus rhythm with frequent PVCs overnight. IV amiodarone infusion was initiated. She remains unresponsive on the ventilator with an upward gaze. Her pupils are reactive. Intermittent tonic-clonic movements noted. Preliminary review of bedside 2D transthoracic echocardiogram demonstrates a cardiomyopathy with ejection fraction 30-35%. Moderate global hypokinesis. Troponin 6.0. Allergies Allergy/AdvReac Type Severity Reaction Status Date / Time No Known Allergies Allergy Unverified 09/10/21 01:20 Home Medications Medication Instructions Recorded Confirmed Type famotidine 20 mg tablet 20 mg PO DAILY 09/10/21 09/10/21 History losartan 25 mg tablet 25 mg PO DAILY 09/10/21 09/10/21 History metformin 500 mg tablet,extended 500 mg PO BIDM 09/10/21 09/10/21 History release 24 hr nicotine 21 mg/24 hr daily 1 patch TRANSDERMAL DAILY 09/10/21 09/10/21 History transdermal patch venlafaxine 150 mg tablet,extended 150 mg PO DAILY 09/10/21 09/10/21 History release 24 hr Patient History Social History Smoking Status: Unknown if ever smoked Preferred Language: Tuvaluan Communication Ability: Impaired Director Commercial Sales Required: No Beliefs That Will Affect Care: None marital status: Life Partner Current Living Situation: Spouse Assistive Devices: None Review of Systems Review of Systems: Unobtainable due to cognitive status Physical Exam Constitutional: well developed and well nourished; no acute distress Respiratory: no retractions Auscultation: lungs clear to auscultation bilaterally; no crackles, no rales, no rhonchi and no wheezes Cardiovascular: Rate/Rhythm: regular rate (Frequent ectopy) Heart Sounds: normal S1 and normal S2; no gallop, no murmur and no cardiac rub Vessels: radial pulses present; no JVD and no carotid bruit Extremities: no edema Gastrointestinal (Abdomen): Inspection/Auscultation: abdomen normal to inspection and normal bowel sounds; abdomen not distended Results & Data ([facility]) Vital Signs (Past 12 Hours) Vital Signs Temp Pulse Pulse Pulse Resp BP BP 09/10/21 08:00 36.6 C 92 H 38 H 128/85 09/10/21 07:45 91 H 39 H 09/10/21 07:00 35.9 C L 89 35 H 128/80 09/10/21 06:40 35.6 C L 92 H 29 H 09/10/21 06:30 35.5 C L 86 34 H 09/10/21 06:20 35.4 C L 90 31 H 09/10/21 06:10 35.3 C L 88 36 H 09/10/21 06:00 35.2 C L 86 28 H 121/53 L 09/10/21 05:50 35.1 C L 84 31 H 09/10/21 05:40 35.0 C L 83 29 H 09/10/21 05:30 34.9 C L 83 30 H 09/10/21 05:20 34.8 C L 83 28 H 09/10/21 05:10 34.7 C L 82 29 H 09/10/21 05:00 34.6 C L 81 33 H 124/73 09/10/21 04:50 34.4 C L 82 31 H 09/10/21 04:40 34.2 C L 80 30 H 09/10/21 04:38 34.2 C L 80 31 H 123/65 09/10/21 04:30 34.1 C L 82 30 H 09/10/21 04:20 34.0 C L 87 0 L 09/10/21 04:12 26 H 09/10/21 04:10 34.0 C L 82 25 H 09/10/21 04:05 81 29 H 09/10/21 04:00 33.9 C L 82 34 H 125/79 09/10/21 03:50 33.8 C L 83 25 H 09/10/21 03:40 33.8 C L 81 25 H 09/10/21 03:30 33.7 C L 83 24 09/10/21 03:22 33.7 C L 84 24 09/10/21 03:00 33.7 C L 86 24 123/82 09/10/21 02:22 71 24 154/75 H 09/10/21 01:58 68 24 160/86 H 09/10/21 01:35 33.1 C L 74 24 155/88 H 09/10/21 01:20 33.2 C L 82 24 162/89 H 09/10/21 01:05 33.3 C L 90 16 160/91 H 09/10/21 00:43 33.5 C L 96 H 16 149/94 H 09/10/21 00:25 91 H 24 Pulse Ox Pulse Ox 09/10/21 08:00 95 09/10/21 07:45 96 09/10/21 07:00 95 09/10/21 06:40 96 09/10/21 06:30 95 09/10/21 06:20 95 09/10/21 06:10 96 09/10/21 06:00 92 09/10/21 05:50 94 09/10/21 05:40 94 09/10/21 05:30 94 09/10/21 05:20 93 09/10/21 05:10 94 09/10/21 05:00 92 09/10/21 04:50 92 09/10/21 04:40 92 09/10/21 04:38 89 L 09/10/21 04:30 91 09/10/21 04:20 94 09/10/21 04:12 09/10/21 04:10 95 09/10/21 04:05 91 09/10/21 04:00 93 09/10/21 03:50 93 09/10/21 03:40 95 09/10/21 03:30 92 09/10/21 03:22 93 93 09/10/21 03:00 93 09/10/21 02:22 97 09/10/21 01:58 96 09/10/21 01:35 95 09/10/21 01:20 97 09/10/21 01:05 98 09/10/21 00:43 98 09/10/21 00:25 98
[2021-09-10] MEDS ORDERED: PROPOFOL IV EMULSION 10 MG/ML 100 ML VIAL IV ONE (11:47)
[2021-09-10] MEDS: ACETAMINOPHEN 1,000 MG/100 ML VIAL IV PRN (12:01)
--- NOTE | 2021-09-10 12:25 | Communication Note ---
Date of Service: September 10, 2021 Critical CARE addendum: Patient seen and examined at bedside. She was on amiodarone drip. Not on any sedation. Patient was breathing over the vent. Positive gag Constitutional: No acute distress HEENT: PERRLA, upward gaze Respiratory system: Good antibiotics, no wheeze, no rhonchi, mild crackles bilateral lower lobes CVS: S1-S2 positive, no murmurs or gallops Abdomen: Soft, nontender, nondistended, positive bowel sounds x4 Extremities: +2 pulses bilaterally radialis/ dorsalis pedis, no cyanosis, no edema Neuro: Breathing over the vent, generalized tonic-clonic seizures, increased rigidity bilateral upper and lower extremities, decerebrate posturing Psych: Unable to assess G/U: Positive [place] Plan: In/out: -520, urine output 900 Patient is likely having generalized tonic-clonic seizures but decerebrate posturing from anoxic brain injury. Overall prognosis is very poor. Patient has been getting 2 mg of Ativan every hour. I will start the patient on propofol because of the seizure that she has been having. I would increase the Keppra to 1000 mg twice daily. Patient's troponin went up to 6 this is most likely from the cardiac arrest The HDL is also trending up most likely from cardiac arrest and shock liver. Continue to monitor Patient is starting to spike fever now. I would like the patient to be euthermic 37 C. We will give the patient Tylenol history of distal improvement we will put her on cooling blanket I had discussion with patient's son as well as [id number] in the presence of patient's boyfriend. I laid out the current condition that the patient is in and which the patient is showing is most likely going with anoxic brain injury which has very poor prognosis. Family understands and would not like any aggressive measures if patient is to decline. They will decide regarding taking the endotracheal tube out once other family members are at bedside All questions inquiries of the patient's family were answered in depth I have personally spent additional 35 minutes of critical care time in the direct management of this patient. This is a life/limb threatening event. This includes time spent evaluating patient, direct bedside care, chart review, placing orders, interpretation of diagnostic studies, discussion with consultants, patient, and family members, as well as other required patient management activities. This time is exclusive of all separately billable procedures, and teaching time and separate from and in addition to any other critical care service time. Please note the above document was generated using voice recognition software. It may contain grammatical, syntax or spelling errors. Coding Level of Care Code Critical Care daniel addt'l 30 min Time Spent (min) 35
[2021-09-10] MEDS: propofoL 1,000 MG/100 ML VIAL IV SCH ×2 (13:14→18:50)
[2021-09-10] MEDS: levETIRAcetam 1,000 MG in 0.9 % SODIUM CHLORIDE 100 ML IV SCH (13:23)
[2021-09-10] MEDS ORDERED: levETIRAcetam 500 MG in 0.9 % SODIUM CHLORIDE 100 ML IV SCH (14:00)
--- NOTE | 2021-09-10 18:04 | Electroencephalogram ---
EEG Procedure Note Date of Service September 10, 2021 Start / End Times Start Time: 17:10 End Time: 17:[address] Carroll Wallace History A 56 year old woman s/p cardiac arrest. EEG performed for evaluation of epileptiform activity. Home Medication List Medication Instructions Recorded Confirmed Type famotidine 20 mg tablet 20 mg PO DAILY 09/10/21 09/10/21 History losartan 25 mg tablet 25 mg PO DAILY 09/10/21 09/10/21 History metformin 500 mg tablet,extended 500 mg PO BIDM 09/10/21 09/10/21 History release 24 hr nicotine 21 mg/24 hr daily 1 patch TRANSDERMAL DAILY 09/10/21 09/10/21 History transdermal patch venlafaxine 150 mg tablet,extended 150 mg PO DAILY 09/10/21 09/10/21 History release 24 hr Inpatient Medication List Amiodarone HCl/Dextrose (Nexterone / D5w) 360 mg in 200 mls @ 16.667 mls/hr IV .Q12H [facility] Stop: 10/10/21 07:14 Last Admin: 09/10/21 06:53 Dose: 0.5 mg/min, 16.7 mls/hr Documented by: [id number] Cosigned by: [id number] Acetaminophen (Ofirmev) 1,000 mg in 100 mls @ 400 mls/hr IV Q8H PRN PRN Reason: Fever Stop: 09/13/21 03:33 Last Infusion: 09/10/21 12:16 Dose: 0 mls/hr Documented by: [id number] Admin: 09/10/21 12:01 Dose: 400 mls/hr Documented by: [id number] Ceftriaxone Sodium 2,000 mg/ (Dextrose) 70 mls @ 140 mls/hr IV Q24H LUCY Stop: 09/20/21 03:59 Last Infusion: 09/10/21 06:17 Dose: 0 mls/hr Documented by: [id number] Admin: 09/10/21 05:08 Dose: 140 mls/hr Documented by: [id number] Propofol (Diprivan) 1,000 mg in 100 mls @ 9.624 mls/hr IV .[id number] LUCY; Protocol Stop: 09/13/21 12:01 Last Admin: 09/10/21 13:14 Dose: 20 mcg/kg/min, 9.6 mls/hr Documented by: [id number] Cosigned by: [id number] Levetiracetam 1,000 mg/ Sodium (Chloride) 110 mls @ 420 mls/hr IV Q12H LUCY Stop: 10/10/21 13:59 Last Infusion: 09/10/21 13:39 Dose: 0 mls/hr Documented by: [id number] Admin: 09/10/21 13:23 Dose: 420 mls/hr Documented by: [id number] Midazolam HCl (Midazolam Hcl 1 Mg/Ml 2ml Vial) 2 mg IV Q2H PRN PRN Reason: RASS goal -1 Stop: 10/10/21 03:33 Last Admin: 09/10/21 11:21 Dose: 2 mg Documented by: [id number] Admin: 09/10/21 09:32 Dose: 2 mg Documented by: [id number] Admin: 09/10/21 05:08 Dose: 2 mg Documented by: [id number] Discontinued Medications Amiodarone HCl/Dextrose (Amiodarone 150mg / 100ml D5w) Confirm Administered Dose 150 mg IV .STK-MED ONE Stop: 09/10/21 01:13 Last Admin: 09/10/21 01:18 Dose: 150 mg Documented by: [id number] Cosigned by: [id number] Amiodarone HCl/Dextrose (Nexterone / D5w) 150 mg in 100 mls @ 600 mls/hr IV NOW STA Stop: 09/10/21 01:21 Last Admin: 09/10/21 01:18 Dose: Not Given Documented by: [id number] Amiodarone HCl/Dextrose (Nexterone / D5w) 360 mg in 200 mls @ 33.333 mls/hr IV ONE ONE Stop: 09/10/21 07:21 Last Infusion: 09/10/21 06:53 Dose: 0 mls/hr Documented by: [id number] Cosigned by: [id number] Admin: 09/10/21 01:40 Dose: 33.3 mls/hr Documented by: [id number] Cosigned by: [id number] Levetiracetam 1,000 mg/ Sodium (Chloride) 110 mls @ 440 mls/hr IV NOW STA Stop: 09/10/21 02:47 Last Infusion: 09/10/21 04:11 Dose: 0 mls/hr Documented by: [id number] Admin: 09/10/21 02:46 Dose: 440 mls/hr Documented by: [id number] Lorazepam (Ativan) 2 mg in 4 mls @ 4 mls/min IV NOW STA Stop: 09/10/21 02:35 Last Admin: 09/10/21 02:36 Dose: 4 mls/min Documented by: [id number] Magnesium Sulfate/Dextrose (Magnesium Sulfate / D5w) 1 gm in 100 mls @ 50 mls/hr IV ONE ONE Stop: 09/10/21 11:14 Last Infusion: 09/10/21 11:37 Dose: 0 mls/hr Documented by: [id number] Admin: 09/10/21 09:37 Dose: 50 mls/hr Documented by: [id number] Sodium Chloride (Nss 1000ml) 1,000 mls @ 125 mls/hr IV .Q8H LUCY Stop: 09/10/21 16:59 Last Admin: 09/10/21 09:34 Dose: 125 mls/hr Documented by: [id number] Lorazepam (Lorazepam 2 Mg/4 Ml Vial) Confirm Administered Dose 2 mg .ROUTE .STK- MED ONE Stop: 09/10/21 02:34 Last Admin: 09/10/21 02:36 Dose: Not Given Documented by: [id number] Propofol (Propofol Iv Emulsion 10 Mg/Ml 100 Ml Vial) Confirm Administered Dose 1,000 mg IV .STK-MED ONE Stop: 09/10/21 11:48 Last Admin: 09/10/21 12:54 Dose: Not Given Documented by: [id number] Sodium Bicarbonate (Sodium Bicarb 8.4% Inj 50 Meq/50 Ml Syr) Confirm Administered Dose 100 meq IV .STK-MED ONE Stop: 09/10/21 00:46 Last Admin: 09/10/21 00:45 Dose: 100 meq Documented by: [id number] Description This is a 21 electrode EEG with a single channel dedicated to limited EKG. The electrodes were placed in accordance with the International 10-20 system. REPORT: At the onset of the EEG the patient is in an altered mental state. The background is symmetric with loss of the normal anterior to posterior gradient. The posterior dominant rhythm is not seen. Instead the background consist of a burst supression pattern consisting of period of generalized suppressed activity with a few seconds of 5-7 Hz theta activity which is often sharpy contoured. There is no stage II sleep transients noted. No electrographic seizures are seen. Interpretation IMPRESSION: This is an abnormal routine EEG in a patient with altered mentation due to a burst suppression pattern suggestive of a severe non specific encephalopathy. This pattern associated with cardiac arrest have been associated with diffuse cortical injury and prognosis is often poor.
--- NOTE | 2021-09-10 18:28 | Hospitalist Progress Note ---
Date of Service September 10, 2021 Assessment & Plan Admission and Anticipated Discharge Date Admission Date: September 10, 2021 Subjective Patient seen in ICU room 111. She was admitted early this morning, after cardiac arrest at home. Patient seen by cardiology today and an echocardiogram was obtained. Her EF was normal in 2019, now down to 30 to 35%. Patient was started on amiodarone to suppress ventricular dysrhythmias. She is intubated, and per ICU staff, patient likely having tonic-clonic seizures, getting Ativan and Keppra. At this time, patient is having EEG done. Family outside of the room. They had extensive discussion with ICU physician about the poor prognosis. Anoxic brain injury suspected. MD Dayron Results & Data Results & Data ([facility]) Vital Signs (Past 12 Hours) Vital Signs Temp Pulse Resp BP Pulse Ox 09/10/21 16:00 112 H 38 H 143/78 H 91 09/10/21 15:25 108 H 33 H 92 09/10/21 15:00 109 H 32 H 150/69 H 92 09/10/21 14:00 38.0 C H 106 H 39 H 145/81 H 93 09/10/21 13:00 38.1 C H 103 H 36 H 152/84 H 94 09/10/21 12:00 38.0 C H 108 H 34 H 152/76 H 96 09/10/21 11:50 105 H 36 H 94 09/10/21 11:00 37.8 C H 101 H 37 H 152/69 H 94 09/10/21 10:00 37.6 C H 100 H 34 H 143/80 H 95 09/10/21 09:00 37.2 C 96 H 38 H 138/66 92 09/10/21 08:00 36.6 C 92 H 38 H 128/85 95 09/10/21 07:45 91 H 39 H 96 09/10/21 07:00 35.9 C L 89 35 H 128/80 95 09/10/21 06:40 35.6 C L 92 H 29 H 96 09/10/21 06:30 35.5 C L 86 34 H 95
[2021-09-11] MEDS: propofoL 1,000 MG/100 ML VIAL IV SCH ×5 (00:12→12:29)
[2021-09-11] MEDS: levETIRAcetam 1,000 MG in 0.9 % SODIUM CHLORIDE 100 ML IV SCH ×2 (02:00→16:39)
[2021-09-11] MEDS: ACETAMINOPHEN 1,000 MG/100 ML VIAL IV PRN (02:01)
[2021-09-11] MEDS: cefTRIAXone SODIUM 2,000 MG in DEXTROSE 5% 50 ML IV SCH (04:36)
[2021-09-11 05:55] LABS: Hematocrit (blood only) 41.2 % (37-47); Immature Granulocytes # (auto) 0.04 K/uL (0.00-0.02); Immature Granulocytes % (auto) 0.2 %; Lymphocytes # (auto) 1.89 K/uL (1.2-3.4); Lymphocytes % (auto) 9.5 %; Mean Corpuscular Hemoglobin 31.6 pg (25-34); Mean Platelet Volume 11.6 fL (7.4-10.4); Monocytes # (auto) 1.69 K/uL (0.11-0.59); Monocytes % (auto) 8.5 %; Neutrophils # (auto) 16.24 K/uL (1.4-6.5); Neutrophils % (auto) 81.8 %; Platelet Count 192 K/uL (130-400); RDW Coefficient of Variation 13.2 % (11.5-14.5); RDW Standard Deviation 45.3 fL (36.4-46.3); Red Blood Count 4.43 M/uL (4.2-5.4); White Blood Count 19.86 K/uL (4.8-10.8)
[2021-09-11] MEDS: AMIODARONE / D5W 360 MG/200 ML BAG IV SCH (06:20)
[2021-09-11 06:42] LABS: Albumin Level 3.1 gm/dl (3.4-5.0); Bilirubin Direct 0.1 mg/dl (0-0.2); Bilirubin,Total 0.5 mg/dl (0.2-1); Calcium 8.3 mg/dl (8.5-10.1); Creatinine Clr Calc Pharmacy 73.1 ml/min; Est GFR (African American) 81.7 ml/min; Est GFR (Non-African American) 70.5 ml/min; Magnesium 2.2 mg/dl (1.8-2.4); Phosphorus 3.5 mg/dl (2.5-4.9); Potassium 2.9 mmol/L (3.5-5.1); Total Protein 6.7 gm/dl (6.4-8.2)
[2021-09-11] MEDS: ICU PROTOCOL FOR HYPERGLYCEMIA SCH ×2 (07:45→09:02)
[2021-09-11] MEDS ORDERED: POTASSIUM CHLORIDE 20 MEQ/15 ML UDC PO STA (08:45)
[2021-09-11] MEDS: fentaNYL citrate 100 MCG/2 ML VIAL IV PRN ×2 (09:06→14:47)
[2021-09-11] MEDS: POTASSIUM CHLORIDE / WTR 10 MEQ/100 ML PLCT IV SCH ×2 (09:10→10:33)
--- NOTE | 2021-09-11 09:26 | Hospitalist Progress Note ---
Date of Service September 11, 2021 Assessment & Plan (1) Cardiac arrest with ventricular fibrillation: Plan: This is a 56-year-old female who presents status post cardiac arrest. 1. Status post cardiac arrest: Etiology unclear on admission, thought probably myocardial infarction because of elevated troponin vs. arrhythmia/V. fib (which was reported by EMS) . Per cardiology consultation, patient has history of frequent PVCs, and her echocardiogram reveals cardiomyopathy likely related to her PVCs, and less likely ischemic. Per echocardiogram in 2019 her EF was normal, however, now reduced to 30-35%. Patient was started on amiodarone drip, and continued for suppression of ventricular dysrhythmias. Currently, status post intubation. She was down for 40 minutes. Her neurologic status appears poor. She is unresponsive with upward gaze and intermittent tonic/clonic movements. Anoxic brain injury suspected Receiving ativan and Keppra. EEG IMPRESSION: This is an abnormal routine EEG in a patient with altered mentation due to a burst suppression pattern suggestive of a severe non specific encephalopathy. This pattern associated with cardiac arrest have been associated with diffuse cortical injury and prognosis is often poor. Closely monitor in the ICU. Vent management as per critical care. ICU physician had an extensive conversation with the family about the poor prognosis. 2. Urinary tract infection: On Rocephin. 3. Diabetes: Will follow the blood sugars may need insulin drip. 4. Depression: Will hold home medications for now. 5. Gastroesophageal reflux disease: On Pepcid. DVT prophylaxis: As per critical care. DISPOSITION: Closely monitor in the ICU. Code: Code status changed to DNR/DNI. Family to decide on further management, given very poor prognosis. Admission and Anticipated Discharge Date Admission Date: September 10, 2021 Subjective Patient seen in follow up of cardiac arrest at home Pt was admitted yesterday, after cardiac arrest at home. Patient was seen by cardiology and an echocardiogram was obtained. Her EF was normal in 2019, now down to 30 to 35%. Patient was started on amiodarone to suppress ventricular dysrhythmias. She was intubated, and per ICU staff, patient likely having tonic-clonic seizures, getting Ativan and Keppra. EEG also obtained. Anoxic brain injury suspected. Pt now also febrile. ICU physician had an extensive discussion with the family about the poor prognosis. Currently patient's significant other at the bedside. Review of Systems Review of Systems: Unobtainable due to cognitive status Physical Exam Physical Exam: GENERAL: WD/WN F, intubated HEENT: NC/AT, Pupils are small round, can't appreciate reaction to light NECK: No JVD. CARDIOVASCULAR: S1 and S2 heard. Regular rate and rhythm w/ frequent ectopy No murmur, no gallop. RESPIRATORY: Intubated. Normal AP diameter. No wheezing, minimal crackles. ABDOMEN: Soft, bowel sounds present, no distention. NEURO: Unresponsive status post intubation. EXTREMITIES: No edema, no erythema seen. Results & Data Results & Data ([facility]) Vital Signs (Past 12 Hours) Vital Signs Temp Pulse Resp BP Pulse Ox Pulse Ox 09/11/21 07:15 107 H 32 H 93 09/11/21 06:34 37.9 C H 09/11/21 04:46 38.1 C H 09/11/21 04:40 100 H 33 H 93 09/11/21 04:30 103 H 35 H 93 09/11/21 04:26 106 H 34 H 93 09/11/21 04:20 105 H 34 H 93 09/11/21 04:10 105 H 33 H 93 09/11/21 04:00 103 H 33 H 139/80 93 09/11/21 03:54 38.2 C H 09/11/21 03:50 104 H 33 H 93 09/11/21 03:40 106 H 34 H 93 09/11/21 03:30 102 H 34 H 93 09/11/21 03:22 93 09/11/21 03:20 105 H 34 H 93 09/11/21 03:10 104 H 34 H 93 09/11/21 03:00 103 H 33 H 128/80 93 09/11/21 02:50 105 H 34 H 93 09/11/21 02:40 112 H 32 H 93 09/11/21 02:30 106 H 33 H 93 09/11/21 02:25 39 C H 09/11/21 02:20 110 H 35 H 93 09/11/21 02:10 114 H 36 H 93 09/11/21 02:00 109 H 35 H 145/79 H 92 09/11/21 01:50 112 H 30 H 93 09/11/21 01:40 113 H 35 H 93 09/11/21 01:30 115 H 32 H 93 09/11/21 01:20 113 H 30 H 93 09/11/21 01:10 112 H 35 H 92 09/11/21 01:00 117 H 34 H 141/87 H 92 09/11/21 00:50 114 H 28 H 92 09/11/21 00:40 114 H 35 H 92 09/11/21 00:30 117 H 33 H 92 09/11/21 00:20 114 H 31 H 92 09/11/21 00:10 115 H 33 H 92 09/11/21 00:00 115 H 29 H 140/84 92 09/10/21 23:50 119 H 30 H 92 09/10/21 23:40 119 H 30 H 92 09/10/21 23:30 117 H 32 H 92 09/10/21 23:21 118 H 46 H 92 09/10/21 23:20 117 H 27 H 92 09/10/21 23:10 115 H 28 H 92 09/10/21 23:00 117 H 27 H 142/84 H 92 09/10/21 22:50 118 H 24 92 09/10/21 22:40 117 H 44 H 92 09/10/21 22:30 115 H 35 H 92 09/10/21 22:20 115 H 32 H 92 09/10/21 22:10 116 H 31 H 92 09/10/21 22:00 115 H 33 H 148/80 H 92 09/10/21 21:50 116 H 41 H 92 09/10/21 21:40 115 H 31 H 92 09/10/21 21:30 115 H 36 H 91 09/10/21 21:20 115 H 33 H 91 09/10/21 21:10 115 H 36 H 91 Laboratory Results 09/11/21 09/11/21 09/11/21 Range/Units 06:17 05:21 05:21 WBC 19.86 H (4.8-10.8) K/uL RBC 4.43 (4.2-5.4) M/uL Hgb 14.0 (12.0-16.0) g/dL Hct 41.2 (37-47) % MCV 93.0 (80-100) fL MCH 31.6 (25-34) pg MCHC 34.0 (32-36) g/dL RDW Std Deviation 45.3 (36.4-46.3) fL RDW Coeff of Filipe 13.2 (11.5-14.5) % Plt Count 192 (130-400) K/uL MPV 11.6 H (7.4-10.4) fL Immature Gran % (Auto) 0.2 % Neut % (Auto) 81.8 % Lymph % (Auto) 9.5 % Kern % (Auto) 8.5 % Eos % (Auto) 0.0 % Baso % (Auto) 0.0 % Neut # (Auto) 16.24 H (1.4-6.5) K/uL Lymph # (Auto) 1.89 (1.2-3.4) K/uL Kern # (Auto) 1.69 H (0.11-0.59) K/uL Eos # (Auto) 0.00 (0-0.5) K/uL Baso # (Auto) 0.00 (0-0.2) K/uL Immature Gran # (Auto) 0.04 H (0.00-0.02) K/uL Sodium 138 (136-145) mmol/L Potassium 2.9 L D (3.5-5.1) mmol/L Chloride 107 (98-107) mmol/L Carbon Dioxide 22 (21-32) mmol/L Anion Gap 9.0 (3-11) BUN 18 (7-18) mg/dl Creatinine 0.91 (0.6-1.2) mg/dl Est Cr Clr Drug Dosing 73.1 ml/min Est GFR ( Amer) 81.7 ml/min Est GFR (Non-Af Amer) 70.5 ml/min BUN/Creatinine Ratio 20.0 (10-20) Glucose 134 H (70-99) mg/dl POC Glucose 136 H (70-99) mg/dl Calcium 8.3 L (8.5-10.1) mg/dl Phosphorus 3.5 (2.5-4.9) mg/dl Magnesium 2.2 (1.8-2.4) mg/dl Total Bilirubin 0.5 (0.2-1) mg/dl Direct Bilirubin 0.1 (0-0.2) mg/dl AST 135 H (15-37) U/L ALT 111 H (12-78) Alkaline Phosphatase 60 (45-117) U/L Total Protein 6.7 (6.4-8.2) gm/dl Albumin 3.1 L (3.4-5.0) gm/dl Blood Type Antibody Screen 09/10/21 09/10/21 09/10/21 Range/Units 23:56 18:27 14:34 WBC (4.8-10.8) K/uL RBC (4.2-5.4) M/uL Hgb (12.0-16.0) g/dL Hct (37-47) % MCV (80-100) fL MCH (25-34) pg MCHC (32-36) g/dL RDW Std Deviation (36.4-46.3) fL RDW Coeff of Filipe (11.5-14.5) % Plt Count (130-400) K/uL MPV (7.4-10.4) fL Immature Gran % (Auto) % Neut % (Auto) % Lymph % (Auto) % Kern % (Auto) % Eos % (Auto) % Baso % (Auto) % Neut # (Auto) (1.4-6.5) K/uL Lymph # (Auto) (1.2-3.4) K/uL Kern # (Auto) (0.11-0.59) K/uL Eos # (Auto) (0-0.5) K/uL Baso # (Auto) (0-0.2) K/uL Immature Gran # (Auto) (0.00-0.02) K/uL Sodium (136-145) mmol/L Potassium (3.5-5.1) mmol/L Chloride (98-107) mmol/L Carbon Dioxide (21-32) mmol/L Anion Gap (3-11) BUN (7-18) mg/dl Creatinine (0.6-1.2) mg/dl Est Cr Clr Drug Dosing ml/min Est GFR ( Amer) ml/min Est GFR (Non-Af Amer) ml/min BUN/Creatinine Ratio (10-20) Glucose (70-99) mg/dl POC Glucose 154 H 133 H (70-99) mg/dl Calcium (8.5-10.1) mg/dl Phosphorus (2.5-4.9) mg/dl Magnesium (1.8-2.4) mg/dl Total Bilirubin (0.2-1) mg/dl Direct Bilirubin (0-0.2) mg/dl AST (15-37) U/L ALT (12-78) Alkaline Phosphatase (45-117) U/L Total Protein (6.4-8.2) gm/dl Albumin (3.4-5.0) gm/dl Blood Type A Positive Antibody Screen NEGATIVE 09/10/21 Range/Units 11:42 WBC (4.8-10.8) K/uL RBC (4.2-5.4) M/uL Hgb (12.0-16.0) g/dL Hct (37-47) % MCV (80-100) fL MCH (25-34) pg MCHC (32-36) g/dL RDW Std Deviation (36.4-46.3) fL RDW Coeff of Filipe (11.5-14.5) % Plt Count (130-400) K/uL MPV (7.4-10.4) fL Immature Gran % (Auto) % Neut % (Auto) % Lymph % (Auto) % Kern % (Auto) % Eos % (Auto) % Baso % (Auto) % Neut # (Auto) (1.4-6.5) K/uL Lymph # (Auto) (1.2-3.4) K/uL Kern # (Auto) (0.11-0.59) K/uL Eos # (Auto) (0-0.5) K/uL Baso # (Auto) (0-0.2) K/uL Immature Gran # (Auto) (0.00-0.02) K/uL Sodium (136-145) mmol/L Potassium (3.5-5.1) mmol/L Chloride (98-107) mmol/L Carbon Dioxide (21-32) mmol/L Anion Gap (3-11) BUN (7-18) mg/dl Creatinine (0.6-1.2) mg/dl Est Cr Clr Drug Dosing ml/min Est GFR ( Amer) ml/min Est GFR (Non-Af Amer) ml/min BUN/Creatinine Ratio (10-20) Glucose (70-99) mg/dl POC Glucose 148 H (70-99) mg/dl Calcium (8.5-10.1) mg/dl Phosphorus (2.5-4.9) mg/dl Magnesium (1.8-2.4) mg/dl Total Bilirubin (0.2-1) mg/dl Direct Bilirubin (0-0.2) mg/dl AST (15-37) U/L ALT (12-78) Alkaline Phosphatase (45-117) U/L Total Protein (6.4-8.2) gm/dl Albumin (3.4-5.0) gm/dl Blood Type Antibody Screen Medications Administered Current Inpatient Medications Fentanyl Citrate (Fentanyl Citrate 100 Mcg/2 Ml Vial) 50 mcg IV Q2H PRN PRN Reason: Moderate Pain (4,5,6) on NRS Stop: 09/24/21 03:33 Last Admin: 09/11/21 09:06 Dose: 50 mcg Documented by: Amiodarone HCl/Dextrose (Nexterone / D5w) 360 mg in 200 mls @ 16.667 mls/hr IV .Q12H [facility] Stop: 10/10/21 07:14 Last Infusion: 09/11/21 07:10 Dose: 0.5 mg/min, 16.7 mls/hr Documented by: Acetaminophen (Ofirmev) 1,000 mg in 100 mls @ 400 mls/hr IV Q8H PRN PRN Reason: Fever Stop: 09/13/21 03:33 Last Infusion: 09/11/21 02:55 Dose: Infused Documented by: Ceftriaxone Sodium 2,000 mg/ (Dextrose) 70 mls @ 140 mls/hr IV Q24H [facility] Stop: 09/20/21 03:59 Last Infusion: 09/11/21 05:35 Dose: Infused Documented by: Propofol (Diprivan) 1,000 mg in 100 mls @ 19.248 mls/hr IV .Q5H12M [facility]; Protocol Stop: 09/13/21 12:01 Last Titration: 09/11/21 09:04 Dose: 40 mcg/kg/min, 19.2 mls/hr Documented by: Levetiracetam 1,000 mg/ Sodium (Chloride) 110 mls @ 420 mls/hr IV Q12H [facility] Stop: 10/10/21 13:59 Last Infusion: 09/11/21 02:55 Dose: Infused Documented by: Potassium Chloride (K Kevin / Wtr) 10 meq in 100 mls @ 100 mls/hr IV Q1H [facility]; Protocol Stop: 09/11/21 11:29 Last Admin: 09/11/21 09:10 Dose: 100 mls/hr Documented by: Midazolam HCl (Midazolam Hcl 1 Mg/Ml 2ml Vial) 2 mg IV Q2H PRN PRN Reason: RASS goal -1 Stop: 10/10/21 03:33 Last Admin: 09/10/21 11:21 Dose: 2 mg Documented by: Miscellaneous ([facility] Protocol For Hyperglycemia) 1 ea N/A PRN PRN; Protocol PRN Reason: Hyperglycemia Protocol Stop: 09/12/21 03:21 Miscellaneous ([facility] Protocol For Hyperglycemia) 1 ea N/A QAM LUCY Stop: 09/12/21 08:59 Last Admin: 09/11/21 09:02 Dose: 1 ea Documented by:
--- NOTE | 2021-09-11 13:16 | Critical Care Progress Note ---
Date of Service September 11, 2021 Assessment & Plan (1) Cardiomyopathy: (2) Frequent PVCs: (3) Fatty liver: (4) Cardiac arrest with ventricular fibrillation: (5) Admitted to intensive care unit: (6) Cardiac arrest: Plan: Reason Critically Ill: 56-year-old female status post ventricular fibrillation cardiac arrest with ROSC requiring ongoing management evaluation. NEURO - * Encephalopathy: * Likely secondary to anoxic brain injury in the setting of prolonged resuscitation time of greater than 40 minutes. * CT head without acute findings at this time. * There was question of seizure-like activity lasting less than a minute prior to cardiac arrest. * EEG 09/10/21: This is an abnormal routine EEG in a patient with altered mentation due to a burst suppression pattern suggestive of a severe non specific encephalopathy. This pattern associated with cardiac arrest have been associated with diffuse cortical injury and prognosis is often poor. * Seizure-like activity: * Likely represent seizure-like activity in the patient who has sustained significant anoxic brain injury. * Continue with Keppra and propofol CARDIAC/VASCULAR - * V. fib cardiac arrest status post ROSC: * Patient received chest compressions initially by significant other followed by EMS and subsequently Brayden machine for approximately 40 total minutes. She received 2 rounds of epinephrine and defibrillation x4. * Initial EKG demonstrated A. fib-like rhythm, however the patient now appears to be in a sinus rhythm with occasional ectopic beats. * Continue with amiodarone drip * Cardiology on board RESPIRATORY - * Respiratory failure in the setting of cardiac growth: * Intubated in the field. * Able to titrate down FiO2 to 30% quickly. GI/NUTRITION - * OGT in place. RENAL/LYTES - * Monitor BUNs/creatinine Avoid nephrotoxic medication - * Villa in place - Strict I&Os. * ENDO - * DMII * BSGs per unit protocol. ISS --> gtt per unit policy. HEME - * Stable H&H ID - * UTI: * Rocephin added pending urine cultures. --Prophylaxis VTE: None GI: None Lines: Left radial, peripheral, positive Villa Diet: N.p.o. Plan: In/out: +1.1 L, urine output 1225 Patient had EEG done 09/10/2021 which showed burst suppression pattern in the patient cardiac arrest is very poor prognosis and anoxic brain injury Patient's family is going to come in today to decide whether they would like to withdraw the care and keep the patient comfortable. Continue with supportive care for the time being I have personally spent additional 35 minutes of critical care time in the direct management of this patient. This is a life/limb threatening event. This includes time spent evaluating patient, direct bedside care, chart review, placing orders, interpretation of diagnostic studies, discussion with consultants, patient, and family members, as well as other required patient management activities. This time is exclusive of all separately billable procedures, and teaching time and separate from and in addition to any other critical care service time. Please note the above document was generated using voice recognition software. It may contain grammatical, syntax or spelling errors. Admission and Anticipated Discharge Date Admission Date: September 10, 2021 Subjective Patient seen and examined at bedside. No acute distress, no delusions overnight Patient is spiking low-grade fever. She is on cooling blanket Review of Systems Review of Systems: Unobtainable due to endotracheal tube Physical Exam Physical Exam: Constitutional: No acute distress HEENT: PERRLA doll's eye Respiratory system: Good antibiotics, no wheeze, no rhonchi, mild crackles bilateral lower lobes CVS: S1-S2 positive, no murmurs or gallops Abdomen: Soft, nontender, nondistended, positive bowel sounds x4 Extremities: +2 pulses bilaterally radialis/ dorsalis pedis, no cyanosis, no edema Neuro: Breathing over the vent, flaccid extremities Psych: Unable to assess G/U: Positive Villa Skin: no rashes, warm and dry Lymphatic: no cervical or axillary lymphadenopathy Results & Data Results & Data ([facility]) Vital Signs (Past 12 Hours) Vital Signs Temp Pulse Resp BP Pulse Ox Pulse Ox 09/11/21 12:00 98 H 09/11/21 10:25 98 H 30 H 93 09/11/21 08:00 98 H 09/11/21 07:15 107 H 32 H 09/11/21 06:34 37.9 C H 09/11/21 04:46 38.1 C H 09/11/21 04:40 100 H 33 H 93 09/11/21 04:30 103 H 35 H 93 09/11/21 04:26 106 H 34 H 09/11/21 04:20 105 H 34 H 09/11/21 04:10 105 H 33 H 93 09/11/21 04:00 103 H 33 H 139/80 93 09/11/21 03:54 38.2 C H 09/11/21 03:50 104 H 33 H 93 09/11/21 03:40 106 H 34 H 93 09/11/21 03:30 102 H 34 H 93 09/11/21 03:22 93 09/11/21 03:20 105 H 34 H 93 09/11/21 03:10 104 H 34 H 93 09/11/21 03:00 103 H 33 H 128/80 93 09/11/21 02:50 105 H 34 H 93 09/11/21 02:40 112 H 32 H 93 09/11/21 02:30 106 H 33 H 93 09/11/21 02:25 39 C H 09/11/21 02:20 110 H 35 H 93 09/11/21 02:10 114 H 36 H 93 09/11/21 02:00 109 H 35 H 145/79 H 92 09/11/21 01:50 112 H 30 H 93 09/11/21 01:40 113 H 35 H 93 09/11/21 01:30 115 H 32 H 93 09/11/21 01:20 113 H 30 H 93 09/11/21 01:10 112 H 35 H 92 Laboratory Results 09/11/21 05:21 09/11/21 05:21 Coding Level of Care Code Critical Care 1st 30-74 mins Diagnoses Cardiomyopathy I42.9 Frequent PVCs I49.3 Fatty liver K76.0 Cardiac arrest with ventricular fibrillation I46.9; I49.01 Admitted to intensive care unit Z78.9 Cardiac arrest I46.9 Time Spent (min) 35
[2021-09-11] MEDS ORDERED: STAT IV Infusion **Titration per Protocol STA (13:36)
[2021-09-11] MEDS ORDERED: fentaNYL citrate 2,500 MCG/250 ML BAG IV SCH (13:45)
--- NOTE | 2021-09-11 17:31 | Electrocardiogram Report ---
Test Reason : Blood Pressure : / mmHG Vent. Rate : 097 BPM Atrial Rate : 097 BPM P-R Int : 180 ms QRS Dur : 090 ms QT Int : 392 ms P-R-T Axes : 065 057 019 degrees QTc Int : 497 ms Normal sinus rhythm Nonspecific ST and T wave abnormality Prolonged QT Abnormal ECG No previous ECGs available Confirmed by Brendan Parker ([id number]) on 09/11/2021 5:31:23 PM Referred By: REFERRED SELF Confirmed By:Brendan Parker
--- NOTE | 2021-09-11 17:34 | Electrocardiogram Report ---
Test Reason : Blood Pressure : / mmHG Vent. Rate : 089 BPM Atrial Rate : 089 BPM P-R Int : 150 ms QRS Dur : 080 ms QT Int : 434 ms P-R-T Axes : 077 065 072 degrees QTc Int : 528 ms Sinus rhythm with frequent Premature ventricular complexes in a pattern of bigeminy Nonspecific ST abnormality Prolonged QT Abnormal ECG When compared with ECG of 10-SEP-2021 00:27, Premature ventricular complexes are now Present Confirmed by Brendan Parker ([id number]) on 09/11/2021 5:34:11 PM Referred By: REFERRED SELF Confirmed By:Brendan Parker
--- NOTE | 2021-09-11 17:40 | Electrocardiogram Report ---
Test Reason : Blood Pressure : / mmHG Vent. Rate : 080 BPM Atrial Rate : 080 BPM P-R Int : 160 ms QRS Dur : 086 ms QT Int : 452 ms P-R-T Axes : 074 057 065 degrees QTc Int : 521 ms Sinus rhythm with occasional Premature ventricular complexes Nonspecific ST abnormality Prolonged QT Abnormal ECG When compared with ECG of 10-SEP-2021 01:11, No significant change was found Confirmed by Brendan Parker ([id number]) on 09/11/2021 5:39:39 PM Referred By: REFERRED SELF Confirmed By:Brendan Parker
--- NOTE | 2021-09-11 17:48 | Discharge Summary ---
Date of Service September 11, 2021 Discharge Data Allergies Allergy/AdvReac Type Severity Reaction Status Date / Time No Known Allergies Allergy Unverified 09/10/21 01:20 Consultations 09/10/21 01:53 ED Decision to Admit Stat 09/10/21 03:22 Consult Stoper Routine 09/10/21 03:34 Consult Cardiology Routine Ordered Studies 09/10/21 00:43 CT head/brain wo con Urgent Hospital Course (1) Cardiac arrest with ventricular fibrillation: This is a 56-year-old female who presents status post cardiac arrest. 1. Status post cardiac arrest: Etiology unclear on admission, thought probably myocardial infarction because of elevated troponin vs. arrhythmia/V. fib (which was reported by EMS) . Per cardiology consultation, patient has history of frequent PVCs, and her echocardiogram reveals cardiomyopathy likely related to her PVCs, and less likely ischemic. Per echocardiogram in 2019 her EF was normal, however, now reduced to 30-35%. Patient was started on amiodarone drip, and continued for suppression of ventricular dysrhythmias. Currently, status post intubation. She was down for 40 minutes. Her neurologic status appears poor. She is unresponsive with upward gaze and intermittent tonic/clonic movements. Anoxic brain injury suspected Receiving ativan and Keppra. EEG IMPRESSION: This is an abnormal routine EEG in a patient with altered mentation due to a burst suppression pattern suggestive of a severe non specific encephalopathy. This pattern associated with cardiac arrest have been associated with diffuse cortical injury and prognosis is often poor. Closely monitor in the ICU. Vent management as per critical care. ICU physician had an extensive conversation with the family about the poor prognosis. 2. Urinary tract infection: On Rocephin. 3. Diabetes: Will follow the blood sugars may need insulin drip. 4. Depression: Will hold home medications for now. 5. Gastroesophageal reflux disease: On Pepcid. DVT prophylaxis: As per critical care. DISPOSITION: Closely monitor in the ICU. Code: Code status changed to DNR/DNI. Family to decide on further management, given very poor prognosis. Discharge Plan Discharge Items Reason For Visit: CARDIAC ARREST Follow-up/Referrals: Saad Nathan DO [Primary Care Provider] - Medications and DC Order Prescriptions: No Action famotidine 20 mg Tablet 20 mg PO DAILY RF: 0 losartan 25 mg Tablet 25 mg PO DAILY RF: 0 nicotine 21 mg/24 hr Patch 24 Hour 1 patch TRANSDERMAL DAILY RF: 0 metformin 500 mg Tablet Extended Release 24 Hr 500 mg PO BIDM RF: 0 venlafaxine 150 mg Tablet Extended Release 24 Hr 150 mg PO DAILY RF: 0 Admission Data Admit Date/Time: 09/10/21 02:13 Attending Provider: Xavier Padgett Admit Provider: Cory Bourne Primary Care Provider: Saad Nathan Other Providers: Cory Bourne ; Bernadette Hodges ; Jacy Casas ; Juan Nugent ; Asaf Samuel ; Tiago Villalpando ; Isaiah Estes ; Don Smith ; Tej Abdul ; Michelle Magdaleno ; Alma Berrios ; Alessia Aguilar ; Car Gong
--- NOTE | 2021-09-12 05:34 | Electrocardiogram Report ---
Test Reason : Blood Pressure : / mmHG Vent. Rate : 109 BPM Atrial Rate : 109 BPM P-R Int : 158 ms QRS Dur : 084 ms QT Int : 316 ms P-R-T Axes : 043 047 072 degrees QTc Int : 425 ms Sinus tachycardia with occasional Premature ventricular complexes Nonspecific ST and T wave abnormality Abnormal ECG When compared with ECG of 10-SEP-2021 05:31, QT has shortened Confirmed by Brendan Parker ([id number]) on 09/12/2021 5:34:12 AM Referred By: REFERRED SELF Confirmed By:Brendan Parker
== END 2021-09-11 20:01 | disposition expired ==
LOC: ED 00:20 → SUATTDRO 02:13 → MERGE 02:13 → 1E 02:13